=== PATIENT | male | born 1975 | race African-American/Black ===

== ENCOUNTER 2022-09-01 10:09 | Outpatient (REF) | payer OTHER, SELFPAY ==
[2022-09-01 10:25] LABS: MANUAL DIFF FLAG NO
[2022-09-01 11:06] LABS: Basophils Percent Auto 0.4 % (0-2); Eosinophils Absolute Auto 0.1 X10*3/uL (0.0-0.4); Eosinophils Percent Auto 1.9 % (0-4); Hematocrit 45.3 % (42.0-52.0); Hemoglobin 14.9 g/dl (14.0-18.0); Imm Gran Abs Auto 0.01 X10*3/uL (0.00-0.03); Imm Gran Pct Auto 0.2 % (0.0-0.4); Lymphocytes Absolute Auto 2.7 X10*3/uL (1.2-4.9); Lymphocytes Percent Auto 47.9 % (20-40); Mean Corpuscular HGB Conc 32.9 g/dl (31.0-36.0); Mean Corpuscular Hemoglobin 27.9 pg (27.0-33.0); Mean Corpuscular Volume 84.8 fL (80.0-98.0); Monocytes Absolute Auto 0.5 X10*3/uL (0.1-1.2); Monocytes Percent Auto 8.7 % (2-11); Neutrophils Absolute Auto 2.3 x10*3/uL (2.0-8.3); Neutrophils Percent Auto 40.9 % (45-73); Platelet Count 293 X10*3/uL (160-400); Red Blood Count 5.34 X10*6/uL (4.60-5.80); Red Cell Distribution Width 12.6 % (11.0-16.0); White Blood Count 5.7 X10*3/uL (4.8-10.8)
[2022-09-01 11:36] LABS: Alanine Aminotransferase 27 U/L (0-40); Albumin Level 4.3 g/dL (3.5-5.0); Alkaline Phosphatase 103 U/L (39-117); Anion Gap 11 (12-20); Aspartate Amino Transferase 21 U/L (5-37); Bilirubin Total 0.5 mg/dL (0.0-1.0); Blood Urea Nitrogen 15 mg/dL (9-16); Calcium 9.4 mg/dL (8.4-10.2); Carbon Dioxide 26 mmol/L (22-29); Chloride 106 mmol/L (96-108); Cholesterol 164 mg/dL; Estimated Glomerular Filt Rate > 60; Glucose Random 88 mg/dL (60-115); HDL Cholesterol 31 mg/dL; LDL Cholesterol Calculated 115 mg/dl; Potassium 4.3 mmol/L (3.3-5.1); Sodium 139 mmol/L (135-145); Total Protein 7.1 g/dL (6.5-8.0); Triglycerides 90 mg/dL
[2022-09-01 11:52] LABS: HBS Num1 24.62 mIU/mL (0-7.99); HBsAGNum1 0.29 S/CO (0.00-0.99); Hepatitis B Core Antibody Nonreactive (Nonreactive); Hepatitis B Surface Antigen Negative (Negative); ~HepC Num1 0.13 S/CO (0.00-0.79); ~Hepatitis B Surface Antibody REACTIVE (Nonreactive); ~Hepatitis C Antibody Nonreactive (Nonreactive)
[2022-09-01 11:59] LABS: Free T4 (Free Thyroxine) 0.99 ng/dL (0.71-1.85); Thyroid Stimulating Hormone 4.73 uIU/mL (0.32-4.0)
[2022-09-01 12:09] LABS: Folate 11.6 ng/mL (> or = 4.0); Vitamin B12 727 pg/mL (200-900)
[2022-09-02 08:54] LABS: Rubella IgG Antibody 8.35 Index; Rubeola IgG (Measles) >300.00 AU/mL
[2022-09-04 04:03] LABS: TS Negative Control Passed; TS Panel A 90; TS Panel B 324; TS Positive Control Passed; TSpotTB Positive (Negative)
[2022-09-08 13:34] LABS: Testosterone, Total 321 ng/dL (250-1100)
== END 2022-09-01 10:10 | disposition home or self-care (01) ==
LOC: HO.LAB 10:09
PROVIDERS: PCP Internal Medicine; Visit Provider Internal Medicine
DX: Z00.00 Encounter for general adult medical examination without abnormal findings (principal); E78.00 Pure hypercholesterolemia, unspecified; R79.89 Other specified abnormal findings of blood chemistry; E66.3 Overweight; Z11.1 Encounter for screening for respiratory tuberculosis
CPT/HCPCS: 36415; 80053; 80061; 82607; 82746; 84403; 84439; 84443; 85025; 86481; 86704; 86706; 86735; 86762; 86765; 86787; 86803; 87340

== ENCOUNTER 2022-09-07 09:14 | Outpatient (REF) | payer OTHER, SELFPAY ==
--- NOTE | ~2022-09-07 | XR_ITS ---
EXAMINATION: XR CHEST CLINICAL INFORMATION: Nonspecific reaction TB skin test.. COMPARISON: None TECHNIQUE: 2 views of the chest were obtained. FINDINGS: No significant abnormality is noted involving the heart, lungs, mediastinum, bony thorax or soft tissues. XR/XR chest 2V IMPRESSION: Unremarkable chest examination.
== END 2022-09-07 09:15 | disposition home or self-care (01) ==
LOC: HO.XRAY 09:14
PROVIDERS: PCP Internal Medicine; Visit Provider Internal Medicine
DX: R76.11 Nonspecific reaction to tuberculin skin test without active tuberculosis (principal)
CPT/HCPCS: 71046

== ENCOUNTER → 2022-09-14 10:21 | Outpatient (BNVA) | payer OTHER, SELFPAY | PROVIDERS: PCP Internal Medicine; Visit Provider Internal Medicine | DX: R76.11 Nonspecific reaction to tuberculin skin test without active tuberculosis (principal) ==

== ENCOUNTER 2023-06-23 11:04 | Outpatient (AMB) | payer OTHER, SELFPAY ==
[2023-06-23 11:10] VITALS: BP 132/82; PULSE 70; O2SAT 96; BMI 27.2
--- NOTE | 2023-06-23 11:10 | A.OFFPC_ITS ---
Vital Signs 06/23/23 11:10 Height 6 ft Weight 200 lb 4 oz BMI 27.2 BP 132/82 Blood Pressure Location Lt brachial Position Sitting Pulse 70 Pulse Source Pulse Oximeter Pulse Oximetry (%) 96 Oxygen Delivery Method Room Air Intake Visit Reasons: f/u chest pains Trim Stencil Maker Required: No Accompanied by: Self / Same As Patient Allergies No Known Allergies Allergy (Verified 06/23/23 11:17) Medication List - Last Reconciled 06/23/23 by Danny Shepard MD colchicine (gout) 0.6 mg PO BID ibuprofen 800 mg PO TID Tobacco use date assessed: 06/23/23 Dental Screening Dental Screen Date: 06/23/23 Did you have a dental visit in the last 12 months?: No Did you have a dental problem in the last 6 months where you did not have access to dental care?: No Was dental information given to patient?: Patient has dentist HPI f/u chest pains HPI Details 47-year-old overweight male with an elev ated blood pressure last time seen in June 2022. Noted weight loss of 20 lb. Patient is here for follow- up. Patient had colonoscopy cancel review of the notes has seen Cardiology late May with chest pain associated with upper respiratory tract infection with exertional fatigue tested positive for COVID symptoms suggesting pleural pericarditis had a CT angio of the chest no pulmonary embolism was started on colchicine in [facility] diagnosis of acute pericarditis and echocardiogram requested noted in June 12 was in the [facility] emergency room treated as bronchitis with steroid and inhaler. With chest x-ray showing bilateral pleural effusion. Early this year in September patient had a T spot test positive and was sent to the ID specialist negative PPD negative chest x-ray. echo scheduled 06/29/2023 [facility] Medical History Blood pressure elevated without history of HTN Overweight (BMI 25.0-29.9) Surgical History No pertinent past surgical history Family History Father Alive and well Mother Alive and well Social History Housing: House Alcohol intake: never Patient Tobacco Use Status: Never used Tobacco e-Cigarette/Vaping Use: Never Used Second Hand Smoke Exposure: No Current occupational status: employed Cognitive needs: No Hearing needs: No Vision needs: No Questionnaire PHQ-9 Over the last 2 weeks, how often have you been bothered by any of the following problems? 1. Little interest or pleasure in doing things: not at all 2. Feeling down, depressed, or hopeless: not at all 3. Trouble falling or staying asleep, or sleeping too much: not at all 4. Feeling tired or having little energy: not at all 5. Poor appetite or overeating: not at all 6. Feeling bad about yourself - or that you are a failure or have let yourself or your family down: not at all 7. Trouble concentrating on things, such as reading the newspaper or watching television: not at all 8. Moving or speaking so slowly that other people could have noticed. Or the opposite - being so fidgety or restless that you have been moving around a lot more than usual: not at all 9. Thoughts that you would be better off or of hurting yourself in some way: not at all Total score: 0 Depression Screening Interpretation: Negative Depression Screening Done: Yes Source: Developed by Drs. Atif Borges, Zaire Redding and colleagues, with an educational yvonne from [employer]. Thrive Questionnaire Date Thrive assessed: 07/11/22 KATELYN-7 AMB Questionnaire KATELYN-7 Date KATELYN - 7 assessed: 07/11/22 Source: Developed by Drs. Atif Borges, Zaire Redding and colleagues, with an educational yvonne from [employer]. Physical exam (Primary Care) Vital Signs: Last Vital Signs Pulse 70 06/23/23 11:10 BP 132/82 06/23/23 11:10 Pulse Ox 96 06/23/23 11:10 Oxygen Delivery Method Room Air 06/23/23 11:10 BMI result Body Mass Index 27.2 Tobacco/Smoking Status: Tobacco use Status Tobacco use date assessed 06/23/23 06/23/23 11:20 Patient Tobacco Use Status Never used Tobacco 06/23/23 11:13 e-Cigarette/Vaping Use Never Used 06/23/23 11:13 PHQ-9: PHQ-9 Score PHQ-9: Total score 0 06/23/23 18:04 Depression Screening Interpretation: Negative Thrive Assessment: Date of Thrive Assessment Date Thrive assessed 07/11/22 06/23/23 11:13 Const General: alert; No acute distress Eyes Conjunctivae: conjunctivae normal Resp Auscultation: clear to auscultation bilaterally Cardio Rate: regular rate Rhythm: regular rhythm GI Inspection: Yes normal to inspection Extrem General: Yes normal to inspection and No edema Office Procedures Flu Questionnaire Does the patient have a severe egg allergy?: No Does the patient have severe life threatening allergies?: No Does the patient have a fever or illness today?: No Has the patient ever had Guillain-Fulda Syndrome?: No Has the patient ever had any past reaction to a flu shot?: No Immunizations flu vacc [id number] 6mos up(PF) 60 mcg(15 mcgx4)/0.5 mL IM syringe Performing Provider: Danny Shepard MD [facility] Administered by: GIFTY Page on 06/23/23 11:38 Dose Route Admin Location Dispensed Lot Number Expiration Date NDC Voice Over Artist 0.5 mL IM Left Deltoid 0.5 mL [id number] 02/11/24 02085-554-62 Spring Metrics VIS Given Date VIS Provided VIS Publication Date 06/23/23 Single Vaccine 21 Eligibility Eligibility Date Funding Source Not [facility] Eligible 06/23/23 Private Assessment and Plan Assessment & Plan (1) Positive TB test: Comment: 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 He has negative PPD which is unusual with no immunosuppression and has negative CXR and no symptoms Code(s): R76.11 - Nonspecific reaction to tuberculin skin test without active tuberculos is Plan: Patient was seen by the ID specialist and has advised repeat testing. Request updated to be done (2) TSH elevation: Code(s): R79.89 - Other specified abnormal findings of blood chemistry Plan: Blood work did show an elevated TSH and will need repeat testing (3) Pericarditis: Code(s): I31.9 - Disease of pericardium, unspecified Plan: Patient has been seen by Cardiology and has been placed on colchicine and Motrin and was advised echocardiogram and testing . echo pending (4) Overweight (BMI 25.0-29.9): Code(s): E66.3 - Overweight Plan: Diet and exercise (5) COVID-19 virus infection: Comment: 09/01/2021, 05/2023 Code(s): U07.1 - COVID-19 Plan: Resolving Orders: Orders Influenza [id number] Immunization Today Z23 - Encounter for immunization Comprehensive Met. Panel Today I31.9 - Disease of pericardium, unspecified HIV Ab/Ag Today R76.11 - Nonspecific reaction to tuberculin skin test without active tuberculosis Complete Blood Count Auto Diff Today I31.9 - Disease of pericardium, unspecified Erythrocyte Sedimentation Rate Today I31.9 - Disease of pericardium, unspecified C Reactive Protein Today I31.9 - Disease of pericardium, unspecified KATHERINE Reflex Titer and Pattern Today I31.9 - Disease of pericardium, unspecified, R79.89 - Other specified abnormal findings of blood chemistry Uric Acid Today I31.9 - Disease of pericardium, unspecified T Spot TB Today R76.11 - Nonspecific reaction to tuberculin skin test without active tuberculosis Medications: New ibuprofen 800 mg PO TID 60 tabs 0RF I31.9 - Disease of pericardium, unspecified Coding Level of Care Code Est Pt Level 4 (73460) Diagnoses Positive TB test R76.11 TSH elevation R79.89 Pericarditis I31.9 Overweight (BMI 25.0-29.9) E66.3 COVID-19 virus infection U07.1
== END 2023-06-23 11:56 | disposition home or self-care (01) ==
PROVIDERS: PCP Internal Medicine; Visit Provider Internal Medicine
DX: R76.11 Nonspecific reaction to tuberculin skin test without active tuberculosis (principal); R79.89 Other specified abnormal findings of blood chemistry; I31.9 Disease of pericardium, unspecified; E66.3 Overweight; U07.1 COVID-19; Z23 Encounter for immunization
CPT/HCPCS: 90471; 90686; 99214

== ENCOUNTER 2023-06-23 12:04 | Outpatient (REF) | payer OTHER, SELFPAY ==
[2023-06-23 12:18] LABS: MANUAL DIFF FLAG NO
[2023-06-23 12:59] LABS: Basophils Percent Auto 0.3 % (0-2); Eosinophils Absolute Auto 0.2 X10*3/uL (0.0-0.4); Eosinophils Percent Auto 2.9 % (0-4); Hematocrit 42.1 % (42.0-52.0); Hemoglobin 13.5 g/dl (14.0-18.0); Imm Gran Abs Auto 0.02 X10*3/uL (0.00-0.03); Imm Gran Pct Auto 0.3 % (0.0-0.4); Lymphocytes Absolute Auto 2.2 X10*3/uL (1.2-4.9); Lymphocytes Percent Auto 35.1 % (20-40); Mean Corpuscular HGB Conc 32.1 g/dl (31.0-36.0); Mean Corpuscular Hemoglobin 27.2 pg (27.0-33.0); Mean Corpuscular Volume 84.9 fL (80.0-98.0); Mean Platelet Volume 9.1 fL (9.4-12.4); Monocytes Absolute Auto 0.5 X10*3/uL (0.1-1.2); Monocytes Percent Auto 8.8 % (2-11); Neutrophils Absolute Auto 3.2 x10*3/uL (2.0-8.3); Neutrophils Percent Auto 52.6 % (45-73); Platelet Count 425 X10*3/uL (160-400); Red Blood Count 4.96 X10*6/uL (4.60-5.80); Red Cell Distribution Width 13.6 % (11.0-16.0); White Blood Count 6.1 X10*3/uL (4.8-10.8)
[2023-06-23 13:45] LABS: Alanine Aminotransferase 38 U/L (0-40); Albumin Level 4.1 g/dL (3.5-5.0); Alkaline Phosphatase 122 U/L (39-117); Anion Gap 11 (12-20); Aspartate Amino Transferase 23 U/L (5-37); Bilirubin Total 0.3 mg/dL (0.0-1.0); Blood Urea Nitrogen 13 mg/dL (9-16); C Reactive Protein 1.65 mg/dL (< or = 0.50); Calcium 9.5 mg/dL (8.4-10.2); Carbon Dioxide 28 mmol/L (22-29); Chloride 107 mmol/L (96-108); Estimated Glomerular Filt Rate > 60; Glucose Random 90 mg/dL (60-115); Potassium 4.1 mmol/L (3.3-5.1); Sodium 142 mmol/L (135-145); Total Protein 7.8 g/dL (6.5-8.0); Uric Acid 4.4 mg/dL (3.4-7.0)
[2023-06-23 13:46] LABS: Erythrocyte Sedimentation Rate 53 MM/HR (0-15)
[2023-06-23 14:12] LABS: Free T4 (Free Thyroxine) 1.03 ng/dL (0.71-1.85); Thyroid Stimulating Hormone 2.15 uIU/mL (0.32-4.0)
[2023-06-24 04:01] LABS: HIV AB/AG Nonreactive (Nonreactive); HIV Num 1 0.05 S/CO (0.00-0.99)
[2023-06-26 12:08] LABS: TS Negative Control Passed; TS Panel A 18; TS Panel B 101; TS Positive Control Passed; TSpotTB Positive (Negative)
[2023-06-29 11:40] LABS: Anti Nuclear Antibody Screen NEGATIVE (NEGATIVE)
== END 2023-06-23 12:05 | disposition home or self-care (01) ==
LOC: HO.LAB 12:04
PROVIDERS: PCP Internal Medicine; Visit Provider Internal Medicine
DX: Z11.4 Encounter for screening for human immunodeficiency virus [HIV] (principal); Z11.1 Encounter for screening for respiratory tuberculosis; R79.89 Other specified abnormal findings of blood chemistry; I31.9 Disease of pericardium, unspecified; R76.11 Nonspecific reaction to tuberculin skin test without active tuberculosis
CPT/HCPCS: 36415; 80053; 84439; 84443; 84550; 85025; 85652; 86038; 86140; 86481; 87389

== ENCOUNTER 2023-07-25 11:04 | Outpatient (AMB) | payer OTHER, SELFPAY ==
--- NOTE | 2023-07-25 11:07 | A.OFFPC_ITS ---
Vital Signs 07/25/23 11:09 Height 6 ft Weight 204 lb 2 oz BMI 27.7 BP 130/70 Blood Pressure Location Lt brachial Position Sitting Pulse 72 Pulse Source Pulse Oximeter Pulse Oximetry (%) 96 Oxygen Delivery Method Room Air Intake Visit Reasons: Annual Exam Intake Note: Patient is here today for a physical. Surgical Services Tech Required: No Mgmt Consultant: Not Required per policy Accompanied by: Self / Same As Patient Allergies No Known Allergies Allergy (Verified 07/25/23 11:08) Medication List - Last Reconciled 07/25/23 by Danny Shepard MD colchicine 0.6 mg PO BID ibuprofen 800 mg PO TID Tobacco use date assessed: 07/25/23 Dental Screening Dental Screen Date: 07/25/23 Did you have a dental visit in the last 12 months?: Yes Did you have a dental problem in the last 6 months where you did not have access to dental care?: No Was dental information given to patient?: Patient has dentist HPI Annual Exam HPI Details 48-year-old overweight male with a histo ry of pericarditis positive TB test elevated TSH coming in for physical exam. Last seen in June 2023. Echocardiogram done in June 2023 showing left ventricular size normal with moderate left ventricular hypertrophy ejection fraction of 70% normal diastolic function normal right ventricle no evidence of aortic stenosis or regurgitation no evidence of pulmonary hypertension. seen cardiology 1 week ago - adviswed ibu prn and colchicine continue. repeat CT chest done last week [id number] showing fluid around heart, L lung pleural effusion and perihilar lymphadenopathy and L armpit. states night time fevers to 101, cough, PFSH Medical History (Updated 07/25/23 @ 12:13 by Danny Shepard MD) Night sweats Blood pressure elevated without history of HTN Overweight (BMI 25.0-29.9) Surgical History No pertinent past surgical history Family History (Updated 07/25/23 @ 11:07 by CALLUM Vasquez) Father Alive and well Mother Alive and well Social History Housing: House Alcohol intake: never Patient Tobacco Use Status: Never used Tobacco e-Cigarette/Vaping Use: Never Used Second Hand Smoke Exposure: No Current occupational status: employed Cognitive needs: No Hearing needs: No Vision needs: No Questionnaire Thrive Questionnaire Date Thrive assessed: 07/25/23 I am a: Patient What is your living situation today?: I have a steady place to live Within the past 12 months, did the food you bought not last and you didn't have the money to get more?: Never true Within the past 12 months, did you worry whether your food would run out before you got money to buy more?: Never true Do you have trouble paying for medicines?: No Do you have trouble getting transportation to medical appointments?: No Do you have trouble paying your heating and electricity bill?: No Do you have trouble taking care of your child, family member or friend?: No Do you have trouble with day-to-day activities such as bathing, preparing meals, shopping, managing finances, etc.?: No Are you currently unemployed and looking for a job?: No Are you interested in more education?: No Currently or been in a relationship where the following occur: no concerns reported AUDIT C Alcohol Use Questionnaire (AUDIT-C) 1. How often do you have a drink containing alcohol?: Never Total Score: 0 KATELYN-7 AMB Questionnaire KATELYN-7 Date KATELYN - 7 assessed: 07/25/23 Feeling nervous, anxious, or on edge: 0 = Not at all Not being able to stop or control worryin = Not at all Worrying too much about different things: 0 = Not at all Trouble relaxin = Not at all Being so restless that it is hard to sit still: 0 = Not at all Becoming easily annoyed or irritable: 0 = Not at all Feeling afraid as if something awful might happen: 0 = Not at all Total KATELYN-7 score (0-4 normal; 5-9 mild; 10-14 moderate; 15-21 severe): 0 Source: Developed by Drs. Atif Borges, Elisa Aguilera, Zaire Mauricio and colleagues, with an educational yvonne from [employer]. Review of Systems Const Denies poor appetite and Denies weakness Eyes Denies no additional complaints ENT Reports Normal hearing present, Denies dizziness, Denies nasal congestion, Denies tinnitus and Denies sore throat Card Denies chest pain, Denies syncope, Denies rapid heart rate and Denies dyspnea Resp Denies cough and Denies dyspnea GI Denies change in stool character, Reports constipation, Denies diarrhea, Denies nausea and Denies vomiting Denies dysuria and Denies urinary frequency Neuro Reports Normal hearing present, Denies confusion, Denies dizziness, Denies syncope and Denies weakness Psych Denies confusion Physical exam (Primary Care) Vital Signs: Last Vital Signs Pulse 72 07/25/23 11:09 BP 130/70 07/25/23 11:09 Pulse Ox 96 07/25/23 11:09 Oxygen Delivery Method Room Air 07/25/23 11:09 BMI result Body Mass Index 27.7 Tobacco/Smoking Status: Tobacco use Status Tobacco use date assessed 07/25/23 07/25/23 11:09 Patient Tobacco Use Status Never used Tobacco 07/25/23 11:09 e-Cigarette/Vaping Use Never Used 07/25/23 11:09 Thrive Assessment: Date of Thrive Assessment Date Thrive assessed 07/25/23 07/25/23 11:09 Currently or been in a relationship where the following occur: no concerns repor checo Const General: No confusion Orientation/consciousness: No confusion HENMT Head: Yes normocephalic Ears: external ears normal and TM's normal bilaterally Face and sinus: Yes normal facial exam Mouth: moist mucous membranes Throat: Yes tonsils normal Eyes Conjunctivae: conjunctivae normal Pupils: Equal, round and reactive pupils present and Pupil accommodation reflex normal Direct Ophthalmoscopy: normal light reflex Neck Neck: No lymphadenopathy Thyroid: Thyroid normal Chest Chest palpation & inspection: normal inspection of the chest Resp Effort & Inspection: normal respiratory effort and no audible wheezes Auscultation: clear to auscultation bilaterally, no crackles, no wheezes and lung sounds not diminished Cardio Rate: regular rate Rhythm: regular rhythm Peripheral pulses: radial pulses present and dorsalis pedis present GI Other: guaiac negative prostrate N Palpation (GI): no masses Auscultation: normal bowel sounds and normoactive bowel sounds Male General Exam: Yes normal external exam Skin General skin exam: no rashes or lesions noted Rashes: no rashes Neuro General: No confusion Cranial nerves: Yes Equal, round and reactive pupils present and Yes Normal hearing present Cognition (Neuro): normal cognition Gait exam (Neuro): Normal gait present Motor exam (neuro): 5/5 motor strength present throughout Deep tendon reflexes (DTR's): Right brachioradialis reflex intensity grade: 2+, Left brachioradialis reflex intensity grade: 2+, Right patellar reflex intensity grade: 2+ and Left patellar reflex intensity grade: 2+ Extrem General: No edema Assessment and Plan Assessment & Plan (1) Annual physical exam: Code(s): Z00.00 - Encounter for general adult medical examination without abnormal findings (2) Overweight (BMI 25.0-29.9): Code(s): E66.3 - Overweight Plan: Diet and exercise (3) Pericarditis: Code(s): I31.9 - Disease of pericardium, unspecified Plan: Patient was advised to continue on with colchicine and ibuprofen. 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 He has negative PPD which is unusual with no immunosuppression and has negative CXR and no symptoms Code(s): R76.11 - Nonspecific reaction to tuberculin skin test without active tuberculosis Plan: Continue to follow-up with Infectious Disease (5) Colon cancer screening: Code(s): Z12.11 - Encounter for screening for malignant neoplasm of colon Plan: Placed on hold on account of lymphadenopathy pleural effusion fevers. (6) Pleural effusion: Code(s): J90 - Pleural effusion, not elsewhere classified Plan: Referral to Pulmonary done (7) Thoracic lymphadenopathy: Code(s): R59.0 - Localized enlarged lymph nodes Plan: Referral to Pulmonary and Infectious Disease Orders: Orders Comprehensive Met. Panel Today R76.11 - Nonspecific reaction to tuberculin skin test without active tuberculosis Reticulocyte Count Today R76.11 - Nonspecific reaction to tuberculin skin test without active tuberculosis Vitamin B12 and Folate Today R76.11 - Nonspecific reaction to tuberculin skin test without active tuberculosis Complete Blood Count Auto Diff Today R76.11 - Nonspecific reaction to tuberculin skin test without active tuberculosis Ferritin Today R76.11 - Nonspecific reaction to tuberculin skin test without active tuberculosis IRON PROFILE Today R76.11 - Nonspecific reaction to tuberculin skin test without active tuberculosis Erythrocyte Sedimentation Rate Today R76.11 - Nonspecific reaction to tuberculin skin test without active tuberculosis Referrals Pulmonology Referral J90 - Pleural effusion, not elsewhere classified, R59.0 - Localized enlarged lymph nodes Infectious Disease Referral J90 - Pleural effusion, not elsewhere classified, R59.0 - Localized enlarged lymph nodes, R61 - Generalized hyperhidrosis, R76.11 - Nonspecific reaction to tuberculin skin test without active tuberculosis Coding Level of Care Code Est Pt Prev Care 40-64y(57834) Diagnoses Annual physical exam Z00.00 Overweight (BMI 25.0-29.9) E66.3 Pericarditis I31.9 Positive TB test R76.11 Colon cancer screening Z12.11 Pleural effusion J90 Thoracic lymphadenopathy R59.0
[2023-07-25 11:09] VITALS: BP 130/70; PULSE 72; O2SAT 96; BMI 27.7
== END 2023-07-25 12:23 | disposition home or self-care (01) ==
PROVIDERS: Visit Provider Internal Medicine
DX: Z00.00 Encounter for general adult medical examination without abnormal findings (principal); E66.3 Overweight; I31.9 Disease of pericardium, unspecified; R76.11 Nonspecific reaction to tuberculin skin test without active tuberculosis; Z12.11 Encounter for screening for malignant neoplasm of colon; J90 Pleural effusion, not elsewhere classified; R59.0 Localized enlarged lymph nodes
CPT/HCPCS: 99396

== ENCOUNTER 2023-08-16 13:00 | Outpatient (AMB) | payer OTHER, SELFPAY ==
--- NOTE | 2023-08-16 13:05 | MHC.OFFVIS ---
Intake Vital Signs 08/16/23 13:14 Height 6 ft Weight 214 lb BMI 29.0 Pulse 90 Pulse Source Pulse Oximeter Temp 98.7 F Temp Source Oral Pulse Oximetry (%) 98 Intake Visit Reasons: Ref.Po,Lorenver,nonpecific reaction TB Allergies No Known Allergies Allergy (Verified 08/24/23 13:18) HPI Ref.Po,Lorenver,nonpecific reaction TB HPI Details He has had no complaints He says he didnt do labs or take medication. [facility] Medical History Night sweats Blood pressure elevated without history of HTN Overweight (BMI 25.0-29.9) Surgical History No pertinent past surgical history Family History Father Alive and well Mother Alive and well Social History Housing: House Alcohol intake: never Patient Tobacco Use Status: Never used Tobacco e-Cigarette/Vaping Use: Never Used Second Hand Smoke Exposure: No Current occupational status: employed Cognitive needs: No Hearing needs: No Vision needs: No Review of Systems Const All systems reviewed & are unremarkable except as noted in HPI and below Physical Exam Vital Signs: Last Vital Signs Temp 98.7 F 08/16/23 13:14 Pulse 90 08/16/23 13:14 Pulse Ox 98 08/16/23 13:14 BMI result Body Mass Index 29.0 Const General: cooperative HEENT Head: Yes normal to inspection Face and sinus: Yes normal facial exam Mouth: Normal oral and palatal mucosa present Teeth and gingiva: dentition normal Eyes General: appearance normal, both eyes and all related structures Pupils: Equal, round and reactive pupils present Resp Effort & Inspection: normal respiratory effort Cardio Rate: regular rate Rhythm: regular rhythm GI Palpation (GI): Soft to palpation and nontender General: Yes no CVA tenderness Back/Spine/Pelvis Back: no CVA tenderness Skin General skin exam: no rashes or lesions noted Neuro General: moves all extremities Cranial nerves: Yes Equal, round and reactive pupils present Extrem General: Yes normal to inspection Psych Appearance: grossly normal Assessment & Plan Assessment & Plan (1) Positive TB test: Comment: He has probable latent tuberculosis Code(s): R76.11 - Nonspecific reaction to tuberculin skin test without active tuberculosis Plan: Would check T spot and then see us after. Orders: Orders T Spot TB 08/16/23 R76.11 - Nonspecific reaction to tuberculin skin test without active tuberculosis Coding Level of Care Code Est Pt Level 3 (40072) Diagnoses Positive TB test R76.11
[2023-08-16 13:14] VITALS: PULSE 90; TEMP 37.1; O2SAT 98; BMI 29.0
== END 2023-08-16 14:28 | disposition home or self-care (01) ==
PROVIDERS: PCP Internal Medicine; Visit Provider Internal Medicine
DX: R76.11 Nonspecific reaction to tuberculin skin test without active tuberculosis (principal)
CPT/HCPCS: 99213

== ENCOUNTER → 2023-08-16 13:00 | Outpatient (BNVA) | payer OTHER, SELFPAY | PROVIDERS: PCP Internal Medicine; Visit Provider Internal Medicine ==

== ENCOUNTER 2023-08-24 13:11 | Outpatient (AMB) | payer OTHER, SELFPAY ==
--- NOTE | 2023-08-24 13:16 | MHC.OFFVIS ---
Intake Vital Signs 08/24/23 13:18 Height 6 ft Weight 214 lb BMI 29.0 BP 136/92 H Blood Pressure Location Rt brachial Position Sitting Pulse 76 Pulse Source Doppler Pulse Oximetry (%) 98 Oxygen Delivery Method Room Air Intake Visit Reasons: Pleural Effusion Allergies No Known Allergies Allergy (Verified 08/24/23 13:18) HPI Pleural Effusion HPI Details 48-year-old gentleman, nonsmoker, immigrated from [facility] 12 years prior with positive T spot in 123 and 1123, also history of night sweats, pericardial effusion previously on colchicine and ibuprofen, and small bilateral pleural effusion referred for evaluation. Patient denies cough or sputum production. He states that he did have night sweats and fevers previously, but now those have resolved. [facility] Medical History (Updated 08/24/23 @ 13:36 by Deven Villareal MD) Night sweats Blood pressure elevated without history of HTN Overweight (BMI 25.0-29.9) Surgical History No pertinent past surgical history Family History (Updated 07/25/23 @ 11:07 by CALLUM Vasquez) Father Alive and well Mother Alive and well Social History Housing: House Alcohol intake: never Patient Tobacco Use Status: Never used Tobacco e-Cigarette/Vaping Use: Never Used Second Hand Smoke Exposure: No Current occupational status: employed Cognitive needs: No Hearing needs: No Vision needs: No Review of Systems Const Denies daytime sleepiness, Denies excessive sweating, Denies fatigue, Denies fever(s), Denies lethargy, Denies malaise, Reports night sweats, Denies snoring and Reports weight loss Eyes Denies blurry vision and Denies itchy eyes ENT Denies nasal congestion, Denies post nasal drip, Denies sinus pain, Denies sinus pressure and Denies other ( Thrush) Card Denies chest pain, Denies pedal edema, Denies dyspnea, Denies orthopnea and Denies paroxysmal nocturnal dyspnea Resp Denies cough, Denies hemoptysis, Denies excessive phlegm production, Denies dyspnea, Denies snoring and Denies wheezing GI Denies abdominal pain and Denies heartburn Musc Denies myalgias, Denies arthralgias and Denies joint swelling Skin/Breast Denies rash Neuro Denies memory loss and Denies seizure-like activity Psych Denies abnormal sleep pattern, Denies anxiety and Denies memory loss Endo Denies excessive sweating, Denies fatigue and Denies heat intolerance Gunner/Lymph Denies easy bruising Aller/Immun Denies itchy eyes, Denies seasonal rhinorrhea and Denies wheezing Physical Exam Vital Signs: Last Vital Signs Pulse 76 08/24/23 13:18 BP 136/92 H 08/24/23 13:18 Pulse Ox 98 08/24/23 13:18 Oxygen Delivery Method Room Air 08/24/23 13:18 BMI result Body Mass Index 29.0 Const General: no acute distress and alert Nutritional Appearance: not obese Orientation/consciousness: Other orientation findings ( oriented) HEENT Head: Yes atraumatic Eyes General: appearance normal, both eyes and all related structures Sclerae: sclerae normal EOM: EOMs intact bilaterally Neck Neck: Yes supple Lymphatic: no lymphadenopathy noted Resp Effort & Inspection: normal respiratory effort and no use of accessory muscles Auscultation: clear to auscultation bilaterally Cardio Rate: regular rate Rhythm: regular rhythm Heart sounds: no gallops, no murmurs and no rubs Skin General skin exam: other ( warm) Extrem General: No clubbing, No cyanosis and No edema Assessment & Plan Assessment & Plan (1) Thoracic lymphadenopathy: Code(s): R59.0 - Localized enlarged lymph nodes (2) Pleural effusion: Code(s): J90 - Pleural effusion, not elsewhere classified (3) Positive TB test: Code(s): R76.11 - Nonspecific reaction to tuberculin skin test without active tuberculosis Plan Appears to have at least latent tuberculosis. Will refer to TB clinic. Coding Level of Care Code New Pt Level 4 (80846) Diagnoses Thoracic lymphadenopathy R59.0 Pleural effusion J90 Positive TB test R76.11
[2023-08-24 13:18] VITALS: BP 136/92; PULSE 76; O2SAT 98; BMI 29.0
== END 2023-08-24 13:32 | disposition home or self-care (01) ==
PROVIDERS: PCP Internal Medicine; Visit Provider Internal Medicine Pulmonary Disease
DX: R59.0 Localized enlarged lymph nodes (principal); J90 Pleural effusion, not elsewhere classified; R76.11 Nonspecific reaction to tuberculin skin test without active tuberculosis
CPT/HCPCS: 99204

== ENCOUNTER → 2023-08-24 13:11 | Outpatient (BNVA) | payer OTHER, SELFPAY | PROVIDERS: PCP Internal Medicine; Visit Provider Internal Medicine Pulmonary Disease ==

== ENCOUNTER 2023-09-08 15:56 | Outpatient (AMB) | payer OTHER, SELFPAY ==
[2023-09-08 16:09] VITALS: BP 136/88; PULSE 78; O2SAT 97; BMI 28.3
--- NOTE | 2023-09-08 16:09 | A.OFFPC_ITS ---
Vital Signs 09/08/23 16:09 Height 6 ft Weight 209 lb 0.8 oz BMI 28.3 BP 136/88 Blood Pressure Location Lt brachial Position Sitting Pulse 78 Pulse Source Pulse Oximeter Pulse Oximetry (%) 97 Oxygen Delivery Method Room Air Intake Visit Reasons: Chest problem Motor Vehicle Clerk Required: No Allergies No Known Allergies Allergy (Verified 09/08/23 16:12) Tobacco use date assessed: 09/08/23 HPI Chest problem HPI Details 48-year-old overweight male with a histo ry of pericarditis positive TB test having thoracic lymphadenopathy and sent to Pulmonary. Last seen in July. Patient has been sent to the pulmonary diagnosis of latent tuberculosis and was advised to see the TB Clinic review of the notes also had a CT angio in 07/15/2023 which showed no evidence of pulmonary embolism trace left pleural effusion redemonstration of small pericardial effusion mild mediastinal lymphadenopathy and left axillary lymphadenopathy. [facility] Medical History Night sweats Blood pressure elevated without history of HTN Overweight (BMI 25.0-29.9) Surgical History No pertinent past surgical history Family History Father Alive and well Mother Alive and well Social History Housing: House Alcohol intake: never Patient Tobacco Use Status: Never used Tobacco e-Cigarette/Vaping Use: Never Used Second Hand Smoke Exposure: No Current occupational status: employed Cognitive needs: No Hearing needs: No Vision needs: No Questionnaire PHQ-9 Over the last 2 weeks, how often have you been bothered by any of the following problems? 1. Little interest or pleasure in doing things: not at all 2. Feeling down, depressed, or hopeless: not at all 3. Trouble falling or staying asleep, or sleeping too much: not at all 4. Feeling tired or having little energy: not at all 5. Poor appetite or overeating: not at all 6. Feeling bad about yourself - or that you are a failure or have let yourself or your family down: not at all 7. Trouble concentrating on things, such as reading the newspaper or watching television: not at all 8. Moving or speaking so slowly that other people could have noticed. Or the opposite - being so fidgety or restless that you have been moving around a lot more than usual: not at all 9. Thoughts that you would be better off or of hurting yourself in some way: not at all Total score: 0 Depression Screening Interpretation: Negative Depression Screening Done: Yes Source: Developed by Drs. Atif Borges, Elisa Aguilera, Zaire Mauricio and colleagues, with an educational yvonne from [employer]. Thrive Questionnaire Date Thrive assessed: 09/08/23 I am a: Patient What is your living situation today?: I have a steady place to live Within the past 12 months, did the food you bought not last and you didn't have the money to get more?: Never true Within the past 12 months, did you worry whether your food would run out before you got money to buy more?: Never true Do you have trouble paying for medicines?: No Do you have trouble getting transportation to medical appointments?: No Do you have trouble paying your heating and electricity bill?: No Do you have trouble taking care of your child, family member or friend?: No Do you have trouble with day-to-day activities such as bathing, preparing meals, shopping, managing finances, etc.?: No Are you currently unemployed and looking for a job?: No Are you interested in more education?: No Please select the resources that you would like help with: None THRIVE Score: 0 AUDIT C Alcohol Use Questionnaire (AUDIT-C) 1. How often do you have a drink containing alcohol?: Never Total Score: 0 KATELYN-7 AMB Questionnaire KATELYN-7 Date KATELYN - 7 assessed: 07/25/23 Feeling nervous, anxious, or on edge: 0 = Not at all Not being able to stop or control worryin = Not at all Worrying too much about different things: 0 = Not at all Trouble relaxin = Not at all Being so restless that it is hard to sit still: 0 = Not at all Becoming easily annoyed or irritable: 0 = Not at all Feeling afraid as if something awful might happen: 0 = Not at all Total KATELYN-7 score (0-4 normal; 5-9 mild; 10-14 moderate; 15-21 severe): 0 Source: Developed by Drs. Atif Borges, Elisa Aguilera, Zaire Mauricio and colleagues, with an educational yvonne from [employer]. Physical exam (Primary Care) Vital Signs: Last Vital Signs Pulse 78 09/08/23 16:09 BP 136/88 09/08/23 16:09 Pulse Ox 97 09/08/23 16:09 Oxygen Delivery Method Room Air 09/08/23 16:09 BMI result Body Mass Index 28.3 Tobacco/Smoking Status: Tobacco use Status Tobacco use date assessed 09/08/23 09/08/23 16:10 Patient Tobacco Use Status Never used Tobacco 09/08/23 16:10 e-Cigarette/Vaping Use Never Used 09/08/23 16:10 PHQ-9: PHQ-9 Score PHQ-9: Total score 0 09/08/23 16:37 Depression Screening Interpretation: Negative Thrive Assessment: Date of Thrive Assessment Date Thrive assessed 09/08/23 09/08/23 16:10 Const General: alert; No acute distress Eyes Conjunctivae: conjunctivae normal Resp Auscultation: clear to auscultation bilaterally Cardio Rate: regular rate Rhythm: regular rhythm GI Inspection: Yes normal to inspection Extrem General: Yes normal to inspection and No edema Assessment and Plan Assessment & Plan (1) Latent tuberculosis: Code(s): Z22.7 - Latent tuberculosis Plan: Patient has been sent to the TB Clinic [facility] 11/14/2023 (2) Pericarditis: Code(s): I31.9 - Disease of pericardium, unspecified Plan: Continue to monitor (3) Overweight (BMI 25.0-29.9): Code(s): E66.3 - Overweight Plan: Diet and exercise Medications: Refilled ibuprofen 800 mg PO TID 60 tabs 0RF I31.9 - Disease of pericardium, unspecified Coding Level of Care Code Est Pt Level 4 (78380) Diagnoses Latent tuberculosis Z22.7 Pericarditis I31.9 Overweight (BMI 25.0-29.9) E66.3
== END 2023-09-08 16:55 | disposition home or self-care (01) ==
PROVIDERS: PCP Internal Medicine; Visit Provider Internal Medicine
DX: Z22.7 Latent tuberculosis (principal); I31.9 Disease of pericardium, unspecified; E66.3 Overweight
CPT/HCPCS: 99214

== ENCOUNTER 2024-11-12 11:44 | Outpatient (AMB) | payer OTHER, SELFPAY ==
--- NOTE | 2024-11-12 11:46 | A.OFFPC_ITS ---
Vital Signs 11/12/24 11:47 Height 6 ft Weight 211 lb 8 oz BMI 28.7 BP 110/64 Blood Pressure Location Lt brachial Position Sitting Pulse 68 Pulse Source Pulse Oximeter Temp 96.9 F Temp Source Temporal Artery Scan Pulse Oximetry (%) 98 Oxygen Delivery Method Room Air Intake Visit Reasons: Annual pe Intake Note: Patient is here today for a physical. 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 per policy Accompanied by: Self / Same As Patient Allergies No Known Allergies Allergy (Verified 11/12/24 11:47) Tobacco use date assessed: 11/12/24 Dental Screening Dental Screen Date: 11/12/24 Did you have a dental visit in the last 12 months?: Yes Did you have a dental problem in the last 6 months where you did not have access to dental care?: No Was dental information given to patient?: Patient has dentist HPI Annual pe HPI Details snoring, sleep on watching tv, , PFSH Medical History Night sweats Blood pressure elevated without history of HTN Overweight (BMI 25.0-29.9) Surgical History No pertinent past surgical history Family History Father Alive and well Mother Alive and well Social History Housing: House Alcohol intake: never Patient Tobacco Use Status: Never used Tobacco e-Cigarette/Vaping Use: Never Used Second Hand Smoke Exposure: No service: No Current occupational status: employed Cognitive needs: No Hearing needs: No Vision needs: No Questionnaire PHQ-9 Over the last 2 weeks, how often have you been bothered by any of the following problems? 1. Little interest or pleasure in doing things: not at all 2. Feeling down, depressed, or hopeless: not at all 3. Trouble falling or staying asleep, or sleeping too much: not at all 4. Feeling tired or having little energy: not at all 5. Poor appetite or overeating: not at all 6. Feeling bad about yourself - or that you are a failure or have let yourself or your family down: not at all 7. Trouble concentrating on things, such as reading the newspaper or watching television: not at all 8. Moving or speaking so slowly that other people could have noticed. Or the opposite - being so fidgety or restless that you have been moving around a lot more than usual: not at all 9. Thoughts that you would be better off or of hurting yourself in some way: not at all Total score: 0 Depression Screening Interpretation: Negative Depression Screening Done: Yes Source: Developed by Drs. Atif Borges, Elisa Aguilera, Zaire Mauricio and colleagues, with an educational yvonne from [employer]. Thrive Questionnaire Date Thrive assessed: 11/12/24 I am a: Patient What is your living situation today?: I have a steady place to live Within the past 12 months, did the food you bought not last and you didn't have the money to get more?: Never true Within the past 12 months, did you worry whether your food would run out before you got money to buy more?: Never true Do you have trouble paying for medicines?: No Do you have trouble getting transportation to medical appointments?: No Do you have trouble paying your heating and electricity bill?: No Do you have trouble taking care of your child, family member or friend?: No Do you have trouble with day-to-day activities such as bathing, preparing meals, shopping, managing finances, etc.?: No Are you currently unemployed and looking for a job?: No Are you interested in more education?: No Please select the resources that you would like help with: None Currently or been in a relationship where the following occur: No concerns reported THRIVE Score: 0 AUDIT C Alcohol Use Questionnaire (AUDIT-C) 1. How often do you have a drink containing alcohol?: Never Total Score: 0 KATELYN-7 AMB Questionnaire KATELYN-7 Date KATELYN - 7 assessed: 11/12/24 Feeling nervous, anxious, or on edge: 0 = Not at all Not being able to stop or control worryin = Not at all Worrying too much about different things: 0 = Not at all Trouble relaxin = Not at all Being so restless that it is hard to sit still: 0 = Not at all Becoming easily annoyed or irritable: 0 = Not at all Feeling afraid as if something awful might happen: 0 = Not at all Total KATELYN-7 score (0-4 normal; 5-9 mild; 10-14 moderate; 15-21 severe): 0 Source: Developed by Drs. Atif Borges, Elisa Aguilera, Zaire Mauricio and colleagues, with an educational yvonne from [employer]. Review of Systems Const Denies poor appetite and Denies weakness Eyes Denies no additional complaints ENT Reports Normal hearing present, Denies dizziness, Denies nasal congestion, Denies tinnitus and Denies sore throat Card Denies chest pain, Denies syncope, Denies rapid heart rate and Denies dyspnea Resp Denies cough and Denies dyspnea GI Denies change in stool character, Reports constipation, Denies diarrhea, Denies nausea and Denies vomiting Denies dysuria and Denies urinary frequency Neuro Reports Normal hearing present, Denies confusion, Denies dizziness, Denies syncope and Denies weakness Psych Denies confusion Physical exam (Primary Care) Vital Signs: Last Vital Signs Temp 96.9 F 11/12/24 11:47 Pulse 68 11/12/24 11:47 BP 110/64 11/12/24 11:47 Pulse Ox 98 11/12/24 11:47 Oxygen Delivery Method Room Air 11/12/24 11:47 BMI result Body Mass Index 28.7 Tobacco/Smoking Status: Tobacco use Status Tobacco use date assessed 11/12/24 11/12/24 11:52 Patient Tobacco Use Status Never used Tobacco 11/12/24 11:52 e-Cigarette/Vaping Use Never Used 11/12/24 11:52 PHQ-9: PHQ-9 Score PHQ-9: Total score 0 11/12/24 11:52 Depression Screening Interpretation: Negative Thrive Assessment: Date of Thrive Assessment Date Thrive assessed 11/12/24 11/12/24 11:52 Currently or been in a relationship where the following occur: No concerns reported Const General: No confusion Orientation/consciousness: No confusion HENMT Head: Yes normocephalic Ears: external ears normal and TM's normal bilaterally Face and sinus: Yes normal facial exam Mouth: moist mucous membranes Throat: Yes tonsils normal Eyes Conjunctivae: conjunctivae normal Pupils: Equal, round and reactive pupils present and Pupil accommodation reflex normal Direct Ophthalmoscopy: normal light reflex Neck Neck: No lymphadenopathy Thyroid: Thyroid normal Chest Chest palpation & inspection: normal inspection of the chest Resp Effort & Inspection: normal respiratory effort and no audible wheezes Auscultation: clear to auscultation bilaterally, no crackles, no wheezes and lung sounds not diminished Cardio Rate: regular rate Rhythm: regular rhythm Peripheral pulses: radial pulses present and dorsalis pedis present GI Other: guaaic negative , prostate mild enlarged Palpation (GI): no masses Auscultation: normal bowel sounds and normoactive bowel sounds Male General Exam: Yes normal external exam Skin General skin exam: no rashes or lesions noted Rashes: no rashes Neuro General: No confusion Cranial nerves: Yes Equal, round and reactive pupils present and Yes Normal hearing present Cognition (Neuro): normal cognition Gait exam (Neuro): Normal gait present Motor exam (neuro): 5/5 motor strength present throughout Deep tendon reflexes (DTR's): Right brachioradialis reflex intensity grade: 2+, Left brachioradialis reflex intensity grade: 2+, Right patellar reflex intensity grade: 2+ and Left patellar reflex intensity grade: 2+ Extrem General: No edema Coding Level of Care Code Est Pt Prev Care 40-64y(06044) Diagnoses Latent tuberculosis Z22.7 Annual physical exam Z00.00 Overweight (BMI 25.0-29.9) E66.3 Colon cancer screening Z12. Hypersomnia G47.10 Vision changes H53.9 Assessment & Plan Assessment & Plan (1) Latent tuberculosis: Comment: 05/2024 rifampin 4 months Code(s): Z22.7 - Latent tuberculosis Category: Medical (2) Annual physical exam: Code(s): Z00.00 - Encounter for general adult medical examination without abnormal findings Category: Medical Plan: Patient is advised to eat healthy, keep well hydrated, keep active and have adequate sleep. (3) Overweight (BMI 25.0-29.9): Code(s): E66.3 - Overweight Category: Medical Plan: Diet and exercise (4) Colon cancer screening: Code(s): Z12.11 - Encounter for screening for malignant neoplasm of colon Category: Medical Plan: Patient is reminded about colon cancer screening (5) Hypersomnia: Code(s): G47.10 - Hypersomnia, unspecified Category: Medical (6) Vision changes: Code(s): H53.9 - Unspecified visual disturbance Category: Medical Plan History of Present Illness The patient is a 49-year-old male presenting for a routine physical examination. He has been undergoing preventative care at the TB clinic due to a history of tuberculosis, completing a four-month course of rifampin following a positive Quantiferon test. Recently, a CT scan revealed small ruchi-hilar effusions [id number] treatment, but no evidence of pulmonary embolism. He has a chronic history of mild anemia and thrombocytosis detected in 2022 richard gside elevated LDL cholesterol, which was particularly high in early 2022. Thyroid and testosterone levels are normal, and he has been symptomatically stable regarding chronic respiratory issues with a persistent cough. Weight has remained stable. The patient denies any history of new surgeries, cardiovascular events, or cancer. His social habits note that he is non-alcoholic and non-smoker. Recently, increased snoring has been noted, potentially indicating sleep apnea, although he does not report excessive daytime drowsiness or interruptions in daily activities. Some digestive irregularities are observed without severe constipation, with water intake and diet being significant factors influencing bowel regularity. Health Maintenance - Discussion on the importance of diet and exercise for weight management and overall health - Emphasis on maintaining adequate hydration, dietary fiber intake, and regular physical activity to prevent constipation - Reminder to schedule colon cancer screening - Discussion on upcoming blood work focusing on fasting labs for thyroid, sugar, kidney, liver, cholesterol, B12, and prostate health - Scheduled follow-up with gastroenterology for colonoscopy - Referral to an alteration specialist for routine check-up - Request for sleep study to evaluate potential sleep apnea - Annual flu vaccination recommended, acknowledging late timing for current year Social History - Denies alcohol use - Denies tobacco use - Occupation involves work hours from 3 pm to 11 pm; maintains alertness during work shifts - Reports increased snoring potentially affecting sleep quality as per family observations - Engages in physical activity, but has noted occasional issues with bowel regularity dependent on dietary choices - Bowel habits improved through dietary adjustments - Lives in [place] and prefers local medical facilities for healthcare and pharmaceutical needs Review of Systems - General: Denies dizziness, nausea, or vomiting - Pulmonary: Reports a persistent cough; denies shortness of breath or chest pain - Cardiovascular: Denies palpitations or heartburn - Gastrointestinal: Denies swallowing difficulties; reports variable bowel habits with occasional constipation; denies diarrhea - Genitourinary: Denies urinary difficulties; reports infrequent nocturia - Neurological: Denies dizziness or syncope; friends/family report occasional snoring Physical Exam General: Cooperative, healthy appearing, comfortable, no acute distress and well developed Orientation: Patient oriented x3 Limitations: No limitations Head: Normal to inspection Ears: Hearing grossly normal bilaterally, some ear wax present but ear canal is open Nose: Normal external nose present Face and sinus: Normal facial exam Eyes: Appearance normal, both eyes and all related structures Neck: Normal visual inspection and Yes full ROM Respiratory: Normal respiratory effort and able to speak in complete sentences. Clear to auscultation bilaterally Cardiovascular: Regular rate and rhythm. Normal S1 and S2 GI: Normal to inspection. Soft to palpation and nontender Skin: No rashes or lesions noted Neuro: Patient oriented x3 Extremities: Normal to inspection Results - Labs: Mild anemia (hemoglobin 13.5 g/dL) and mild thrombocytosis (platelet count 425,000/uL) noted from prior reports - Tests and Diagnostics: August 2022 LDL cholesterol elevated at 415 mg/dL; recent CT scan showed small ruchi-hilar effusion without pulmonary embolism Plan Ongoing management includes TB clinic follow-up, evaluation for potential sleep apnea through a sleep study, and referral to gastroenterology for colonoscopy scheduling. Dietary and exercise modifications are encouraged for cholesterol and weight management, and frequent hydration and fiber intake are emphasized for bowel regularity. Prostate health evaluation follows a planned blood test, avoiding immediate post-exam, with transient prostate enlargement monitored. The patient is referred for ophthalmology consultation for routine vision evaluation, and vaccination discussion underscores annual influenza protection, best received in May. Patient was informed and verbally consented to the use of an ambient scribe for clinic note documentation during this visit. Discussion Notes I discussed with the patient the significance of ongoing monitoring and management for TB given his positive Quantiferon test and recent diagnostic imaging. For sleep-related concerns, I introduced the potential for sleep apnea and the plan for home-based sleep study diagnostic testing. A forthcoming colonoscopy via gastroenterology is planned for cancer screening; follow-up scheduling is underway. LDL cholesterol management was emphasized through lifestyle and dietary interventions, and prostate health via scheduled blood work and clinical assessment due to observed benign enlargement. Ophthalmologic referral was arranged to maintain visual health. The patient was informed regarding the importance of flu vaccination, ideally occurring each May, considering timely prophylaxis. I reinforced the measures to improve bowel regularity through diet and hydration. Patient Instructions - Continue follow-up care at the TB clinic. - Consider dietary and exercise modifications for heart health and weight management. - Ensure adequate hydration and fiber intake for bowel regularity. - Monitor cholesterol levels and dietary intake. - Schedule and attend a colonoscopy for cancer screening. - Follow-up with blood work as planned in one week. - Perform routine tasks with awareness of sleep-related concerns. - Attend alteration specialist appointment for vision health maintenance. - Receive annual flu vaccination preferably in May. - Adhere to safety measures in daily activities. Orders: Orders Comprehensive Met. Panel Today Z00.00 - Encounter for general adult medical examination without abnormal findings Free T4 (Free Thyroxine) Today Z00.00 - Encounter for general adult medical examination without abnormal findings Thyroid Stimulating Hormone Today Z00.00 - Encounter for general adult medical examination without abnormal findings Lipid Panel Today E78.00 - Pure hypercholesterolemia, unspecified, Z00.00 - Encounter for general adult medical examination without abnormal findings RT home sleep study Today G47.10 - Hypersomnia, unspecified Complete Blood Count Auto Diff Today Z00.00 - Encounter for general adult medical examination without abnormal findings Vitamin B12 and Folate Today Z00.00 - Encounter for general adult medical examination without abnormal findings Prostate Specific Antigen Scr Today Z00.00 - Encounter for general adult medical examination without abnormal findings UA w Microscopic Today Z00.00 - Encounter for general adult medical examination without abnormal findings Referrals Ophthalmology Referral H53.9 - Unspecified visual disturbance Gastroenterology Referral Z12.11 - Encounter for screening for malignant neoplasm of colon
[2024-11-12 11:47] VITALS: BP 110/64; PULSE 68; TEMP 36.1; O2SAT 98; BMI 28.7
--- OUTSIDE RECORDS SUMMARY | 2024-11-12 14:10 | XMS_ITS | Clinical Summary ---
Author Organization [facility] ity Address [address] [place] [address] Care Team Providers [facility] Worker Name Role Phone Farhat Spencer MD Primary Care Provider Social History Tobacco Use Types Packs/Day Years Used Date Smoking Tobacco: Never Assessed Sex and Gender Information Value Date Recorded Sex Assigned at Not on file Legal Sex Male 9:11 PM EST Gender Identity Not on file Sexual Orientation Not on file Plan of Treatment Health Maintenance Due Date Last Done Comments DTaP,Tdap,and Td Vaccines (1 - Tdap) 1993 Hepatitis B Vaccines (1 of 3 - 19+ 3-dose series) 1993 Cholesterol Screening (Lipid Panel) 09/08/2023 Colorectal Cancer Screening: Colonoscopy 09/08/2023 Depression Screening 09/08/2023 HIV Screening 09/08/2023 Hepatitis C Screening 09/08/2023 Social Influencers of Health Screening 09/08/2023 COVID-19 Vaccine ( - 2023-2 5 season) 2024 Influenza Vaccine (#1) 2024 Pneumococcal Vaccine: 50+ Ye ars (1 of 1 - PCV) 2024 Zoster Vaccines (1 of 2) 2024 HIB Vaccines Aged Out No longer eligi ble based on patient's age to complete this topic HPV Vaccines Aged Out No longer eligi ble based on patient's age to complete this topic Hepatitis A Vaccines Aged Out No long er eligible based on patient's age to complete this topic IPV Vaccines Aged Out No longer eligi ble based on patient's age to complete this topic MMR Vaccines Aged Out No longer eligi ble based on patient's age to complete this topic Meningococcal ACWY Vaccine Aged Out N o longer eligible based on patient's age to complete this topic Meningococcal B Vacine Aged Out No lo nger eligible based on patient's age to complete this topic Pneumococcal Vaccine: Pediat rics (0 to 5 Years) and At-Risk Patients (6 to 64 Years) Aged Out No longer eligible b ased on patient's age to complete this topic RSV Immunization Patients Un jessica 20 months Aged Out No longer eligible b ased on patient's age to complete this topic Varicella Vaccines Aged Out No longer eligible based on patient's age to complete this topic Care Teams Community [facility] Worker Relationship Specialty Start Date End Date Farhat Spencer MD [address] [place] [address] Dr [address] [place], [place] PCP - General 05/21/23
== END 2024-11-12 12:21 | disposition home or self-care (01) ==
PROVIDERS: PCP Internal Medicine; Visit Provider Internal Medicine
DX: Z22.7 Latent tuberculosis (principal); Z00.00 Encounter for general adult medical examination without abnormal findings; E66.3 Overweight; Z12.11 Encounter for screening for malignant neoplasm of colon; G47.10 Hypersomnia, unspecified; H53.9 Unspecified visual disturbance

== ENCOUNTER → 2024-11-12 11:44 | Outpatient (BNVA) | payer OTHER, SELFPAY | PROVIDERS: PCP Internal Medicine; Visit Provider Internal Medicine ==

== ENCOUNTER → 2024-11-14 08:42 | Outpatient (REF) | payer OTHER, SELFPAY ==
--- OUTSIDE RECORDS SUMMARY | 2024-11-14 08:50 | XMS_ITS | Clinical Summary ---
Author Organization [facility] ity Address [address] [place] [address] Care Team Providers Care Sports Physical Therapist Name Role Phone Farhat Spencer MD Primary [...] age to complete this topic Care Teams Sports Physical Therapist Relationship Specialty Start Date End Date Farhat Spencer MD [address] [place] [address] Dr [address] [place], [place] PCP - General 05/21/23
== END ==
LOC: HO.SL 08:42
PROVIDERS: PCP Internal Medicine; Visit Provider Internal Medicine
DX: G47.10 Hypersomnia, unspecified (principal)
CPT/HCPCS: 95806

== ENCOUNTER → 2024-11-15 09:36 | Outpatient (BNV) | payer OTHER, SELFPAY | PROVIDERS: PCP Internal Medicine; Visit Provider Internal Medicine | DX: G47.10 Hypersomnia, unspecified (principal); R06.83 Snoring | CPT/HCPCS: 95806 ==